=== PATIENT | male | born 1945 | race Caucasian/White ===

== ENCOUNTER 2018-08-11 05:46 | Inpatient (IN) | payer OTHER, MEDICARE ==
[2018-08-05 15:20] LABS: BASOPHILS # (AUTO) 0.1 X10'3 (0-0.2); BASOPHILS % (AUTO) 1.3 % (0-1); EOSINOPHILS # (AUTO) 0.2 X10'3 (0-0.9); EOSINOPHILS % (AUTO) 1.9 % (0-6); LYMPHOCYTES # (AUTO) 2.1 X10'3 (1.1-4.8); MEAN CORPUSCULAR HEMOGLOBIN 29.6 PG (27.0-31.0); MEAN CORPUSCULAR HGB CONC 32.7 % (33.0-36.5); MEAN CORPUSCULAR VOLUME 90.5 FL (78-98); MONOCYTES # (AUTO) 0.8 X10'3 (0-0.9); MONOCYTES % (AUTO) 9.5 % (2-12); NEUTROPHILS # (AUTO) 5.1 X10'3 (1.8-7.7); NEUTROPHILS % (AUTO) 62.3 % (42-75); PRE OP HEMATOCRIT 45.5 % (42.0-52.0); PRE OP HEMOGLOBIN 14.9 g/dL (14.0-17.9); PRE OP PLATELET COUNT 228 X10'3 (140-440); RED BLOOD COUNT 5.02 X10'6 (4.70-6.10); RED CELL DISTRIBUTION WIDTH 14.5 % (11.5-14.5)
[2018-08-05 15:36] LABS: ALBUMIN 3.8 G/DL (3.4-5.0); ALBUMIN/GLOBULIN RATIO 1.3 (1.1-1.5); ALKALINE PHOSPHATASE 73 IU/L (46-116); BLOOD UREA NITROGEN 26 MG/DL (7-18); BUN/CREATININE RATIO 23.2 (5.4-32.0); CALCIUM 9.1 MG/DL (8.5-10.1); CHLORIDE 107 MMOL/L (99-107); CREATININE 1.12 MG/DL (0.60-1.10); PRE OP ALT 22 U/L (30-65); PRE OP ANION GAP 11 (8-16); PRE OP AST 16 U/L (10-37); PRE OP BILIRUB, TOTAL 0.5 MG/DL (0.0-1.0); PRE OP GLUCOSE 148 MG/DL (70-104); PRE OP POTASSIUM 3.8 MMOL/L (3.4-5.1); PRE OP SODIUM 143 MMOL/L (135-145); TOTAL PROTEIN 6.8 G/DL (6.4-8.2); eGFR 64 ML/MIN
[2018-08-11] VITALS (18 sets, daily range): BP systolic 105–180; BP diastolic 58–96
[~2018-08-11] VITALS: Ht 177.8 cm; Wt 90.7 kg
[~2018-08-11 05:46] MED LIST: CELE-85 PO; LISI30TA4 PO; acetaminophen 325mg tablet PO ONE; cefazolin/dext.iso 2gm/100 ML IV ONE; famotidine 20mg tablet PO ONE; gabapentin 300mg capsule PO ONE; metoclopramide 5 mg/ml inj IV ONE; oxyCODONE SR 10mg (sust. release) tab PO ONE; ringers solution, lacted 1,000 ML IV SCH; tranexamic acid inj. 1,000 MG in normal saline 100ml IV soln 90 ML IV ONE; vancomycin inj 1,500 MG in normal saline 300ml IV soln IV ONE
[2018-08-11] MEDS ORDERED: LIDOcaine 1% (10mg/ml) 2ml vial ONE (06:26)
[2018-08-11] MEDS ORDERED: ceFAZolin 1000mg inj ONE (06:39)
[2018-08-11] MEDS ORDERED: Thrombin (Bovine) 5,000 unit vial TP ONE (06:39)
[2018-08-11] MEDS ORDERED: vancomycin 1,000mg inj ONE (06:39)
[2018-08-11] MEDS ORDERED: MIDAZolam 1mg/ml 10ml vial ONE (07:32)
[2018-08-11] MEDS ORDERED: fentaNYL/PF 50MCG/1 ML 2ML syringe ONE (07:32)
[2018-08-11] MEDS ORDERED: morphine /PF 1mg/ml 10ml inj. ONE (07:32)
[2018-08-11] MEDS ORDERED: cloNIDine hcl/PF 100mcg/ml inj ONE (07:47)
[2018-08-11] MEDS ORDERED: ROPIVACAINE IU ONE ×5 (08:35)
[2018-08-11] MEDS ORDERED: EPINEPHRINE IU ONE ×5 (08:35)
[2018-08-11] MEDS ORDERED: [UNRECOGNIZED DRUG - OTHER] IU ONE ×5 (08:35)
[2018-08-11] MEDS ORDERED: KETOROLAC TROMETH IU ONE ×5 (08:35)
[2018-08-11] MEDS ORDERED: calcium chloride 100 MG/1 ML inj IV ONE (08:38)
[2018-08-11] MEDS ORDERED: ringers solution, lacted 1,000 ML IV SCH (08:42)
[2018-08-11] MEDS ORDERED: morphine 4 MG/ML inj SYRINge IV PRN ×2 (08:45)
[2018-08-11] MEDS ORDERED: proCHLORperazine 10 MG/2 ml inj IV PRN (08:45)
[2018-08-11] MEDS ORDERED: ondansetron/PF 4mg/2ml inj IV PRN ×2 (08:45→10:15)
[2018-08-11] MEDS ORDERED: meperidine/PF 25mg/ml syringe IV PRN ×3 (08:45)
[2018-08-11] MEDS ORDERED: dexamethasone sod phosphate 4mg/ml inj. ONE (09:18)
[2018-08-11] MEDS ORDERED: ROPIVAcaine 0.5% (5mg/ml) 30ml vial ONE (09:18)
[2018-08-11] MEDS ORDERED: magnesium hydroxide 30ml (MOM) UD suspension PO PRN (10:15)
[2018-08-11] MEDS ORDERED: acetaminophen 325mg tablet PO PRN (10:15)
[2018-08-11] MEDS ORDERED: HYDROmorphone 1 mg/ml syringe IV PRN ×2 (10:15)
[2018-08-11] MEDS ORDERED: bisacodyl 10mg suppository rectal RC PRN (10:15)
[2018-08-11] MEDS ORDERED: diphenhydrAMINE 25mg capsule PO PRN ×2 (10:15)
[2018-08-11] MEDS: gabapentin 300mg capsule PO SCH ×2 (13:39→20:34)
[2018-08-11] MEDS: potassium cl 20mEq in 1/2 NS 1,000 ML IV SCH ×2 (13:39→23:40)
[2018-08-11] MEDS: acetaminophen 325mg tablet PO SCH ×2 (13:39→20:35)
[2018-08-11] MEDS ORDERED: tranexamic acid inj. 900 MG in normal saline 100ml IV soln 100 ML IV ONE (14:00)
[2018-08-11] MEDS: ceFAZolin 1GM/D5W- ADD-VANTAGE 50 ML IV SCH ×2 (16:18→23:41)
[2018-08-11] MEDS ORDERED: vancomycin/NS 1 GM ADD-VANTAGE 250 ML IV SCH (20:00)
[2018-08-11] MEDS: sennosides 8.6mg tablet PO SCH (20:34)
[2018-08-12 02:00] VITALS: BP 130/76
[2018-08-12] MEDS: acetaminophen 325mg tablet PO SCH ×4 (02:01→20:13)
[2018-08-12] MEDS: oxyCODONE IR 5mg (immed. release) tablet PO PRN ×4 (05:20→21:29)
[2018-08-12 06:00] VITALS: BP 129/63
[2018-08-12 06:34] LABS: BASOPHILS % (AUTO) 0.2 % (0-1); EOSINOPHILS # (AUTO) 0.2 X10'3 (0-0.9); EOSINOPHILS % (AUTO) 1.4 % (0-6); HEMATOCRIT 37.6 % (42.0-52.0); HEMOGLOBIN 12.3 g/dl (14.0-17.9); LYMPHOCYTES # (AUTO) 1.1 X10'3 (1.1-4.8); LYMPHOCYTES % (AUTO) 7.5 % (21-51); MEAN CORPUSCULAR HGB CONC 32.7 % (33.0-36.5); MEAN CORPUSCULAR VOLUME 91.9 FL (78-98); MEAN PLATELET VOLUME 8.9 FL (7.4-10.4); MONOCYTES # (AUTO) 1.5 X10'3 (0-0.9); MONOCYTES % (AUTO) 9.6 % (2-12); NEUTROPHILS # (AUTO) 12.4 X10'3 (1.8-7.7); NEUTROPHILS % (AUTO) 81.3 % (42-75); PLATELET COUNT 202 X10'3 (140-440); RED CELL DISTRIBUTION WIDTH 14.5 % (11.5-14.5); WHITE BLOOD COUNT 15.3 X10'3 (4.5-11.0)
[2018-08-12 06:41] LABS: ANION GAP 11 (8-16); CHLORIDE 104 MMOL/L (99-107); POTASSIUM 4.1 MMOL/L (3.5-5.1); SODIUM 138 MMOL/L (135-145); TOTAL CARBON DIOXIDE 23.4 MMOL/L (24-32)
[2018-08-12] MEDS: gabapentin 300mg capsule PO SCH ×3 (08:01→20:13)
[2018-08-12] MEDS: aspirin 325mg tablet PO SCH (08:01)
[2018-08-12] MEDS: lisinopril 10 MG tablet PO SCH (08:04)
[2018-08-12] MEDS: potassium cl 20mEq in 1/2 NS 1,000 ML IV SCH ×3 (08:04→18:15)
[2018-08-12 10:00] VITALS: BP 149/90
[2018-08-12 14:00] VITALS: BP 146/72
[2018-08-12 17:00] VITALS: BP 154/72
[2018-08-12] MEDS: celeCOXIB 100mg capsule PO SCH (20:13)
[2018-08-12] MEDS: sennosides 8.6mg tablet PO SCH (20:13)
[2018-08-12 22:00] VITALS: BP 155/79
[2018-08-13] MEDS: oxyCODONE IR 5mg (immed. release) tablet PO PRN ×3 (01:35→13:13)
[2018-08-13] MEDS: acetaminophen 325mg tablet PO SCH ×2 (01:35→07:19)
[2018-08-13 05:35] LABS: BASOPHILS # (AUTO) 0.1 X10'3 (0-0.2); BASOPHILS % (AUTO) 0.5 % (0-1); EOSINOPHILS # (AUTO) 0.1 X10'3 (0-0.9); EOSINOPHILS % (AUTO) 0.9 % (0-6); HEMATOCRIT 34.9 % (42.0-52.0); HEMOGLOBIN 11.6 g/dl (14.0-17.9); LYMPHOCYTES # (AUTO) 1.4 X10'3 (1.1-4.8); LYMPHOCYTES % (AUTO) 12.3 % (21-51); MEAN CORPUSCULAR HEMOGLOBIN 30.1 PG (27.0-31.0); MEAN CORPUSCULAR HGB CONC 33.3 % (33.0-36.5); MEAN CORPUSCULAR VOLUME 90.5 FL (78-98); MEAN PLATELET VOLUME 9.2 FL (7.4-10.4); MONOCYTES # (AUTO) 1.4 X10'3 (0-0.9); NEUTROPHILS # (AUTO) 8.1 X10'3 (1.8-7.7); NEUTROPHILS % (AUTO) 73.3 % (42-75); PLATELET COUNT 176 X10'3 (140-440); RED BLOOD COUNT 3.85 X10'6 (4.70-6.10); RED CELL DISTRIBUTION WIDTH 14.9 % (11.5-14.5); WHITE BLOOD COUNT 11.1 X10'3 (4.5-11.0)
[2018-08-13 06:00] VITALS: BP 163/82
[2018-08-13] MEDS: celeCOXIB 100mg capsule PO SCH (07:18)
[2018-08-13] MEDS: gabapentin 300mg capsule PO SCH ×2 (07:19→13:13)
[2018-08-13] MEDS: aspirin 325mg tablet PO SCH (07:19)
[2018-08-13 07:21] VITALS: BP_SYST 188
[2018-08-13] MEDS: lisinopril 10 MG tablet PO SCH (07:21)
[2018-08-13] MEDS ORDERED: acetaminophen 325mg tablet PO PRN (10:15)
== END 2018-08-13 13:15 | disposition home or self-care (01) | DRG 470 ==
LOC: PAS IN 05:46 → EDSTATUS 07:30 → ORTHO 4S 11:30
PROVIDERS: ADMIT Orthopaedic Surgery; ATTEND Orthopaedic Surgery
PROC: 3E0T3BZ Introduction of Anesthetic Agent into Peripheral Nerves and Plexi, Percutaneous Approach (ICD-10-PCS; 2018-08-11)
PROC: 8E0YXCZ Robotic Assisted Procedure of Lower Extremity (ICD-10-PCS; 2018-08-11)
PROC: 0SRD069 Replacement of Left Knee Joint with Oxidized Zirconium on Polyethylene Synthetic Substitute, Cemented, Open Approach (ICD-10-PCS; principal; 2018-08-11 07:22)
DX: M17.12 Unilateral primary osteoarthritis, left knee (principal); D62 Acute posthemorrhagic anemia; I10 Essential (primary) hypertension; N40.0 Benign prostatic hyperplasia without lower urinary tract symptoms
CPT/HCPCS: 36415; 80051; 80053; 85025; 87070; 97110; 97116; 97161; 97530; A6455; A7000; C1713; C1758; C1776; G0378; J0690; J0735; J1100; J2250; J2274; J2765; J2795; J3010; J3370; J3490; J7030; J7120

== ENCOUNTER 2019-02-14 12:56 | Emergency (ER) | payer OTHER, MEDICARE ==
[~2019-02-14] VITALS: Ht 177.8 cm; Wt 94.7 kg
[~2019-02-14 12:56] MED LIST changes: -acetaminophen 325mg tablet PO ONE; -cefazolin/dext.iso 2gm/100 ML IV ONE; -famotidine 20mg tablet PO ONE; -gabapentin 300mg capsule PO ONE; -metoclopramide 5 mg/ml inj IV ONE; -oxyCODONE SR 10mg (sust. release) tab PO ONE; -ringers solution, lacted 1,000 ML IV SCH; -tranexamic acid inj. 1,000 MG in normal saline 100ml IV soln 90 ML IV ONE; -vancomycin inj 1,500 MG in normal saline 300ml IV soln IV ONE
[2019-02-14] MEDS ORDERED: HYDROcodone/acetaminophen 10/325mg tab PO ONE (15:45)
[2019-02-14] MEDS ORDERED: HYDR-4353 PO (15:46)
[2019-02-14 16:18] VITALS: BP 173/103
== END 2019-02-14 16:09 | disposition home or self-care (01) ==
LOC: ER 12:57
DX: S52.572A Other intraarticular fracture of lower end of left radius, initial encounter for closed fracture (principal); I10 Essential (primary) hypertension; M19.90 Unspecified osteoarthritis, unspecified site; Z79.899 Other long term (current) drug therapy; W01.0XXA Fall on same level from slipping, tripping and stumbling without subsequent striking against object, initial encounter; Y93.89 Activity, other specified; Y92.89 Other specified places as the place of occurrence of the external cause; Y99.8 Other external cause status
CPT/HCPCS: 29125; 73110; 99283

== ENCOUNTER 2019-05-27 12:44 | Outpatient (CLI) | payer MEDICARE, OTHER ==
[~2019-05-27 12:44] MED LIST changes: -CELE-85 PO; +HYDR-3972 PO
== END 2019-05-27 23:59 | disposition home or self-care (01) ==
LOC: VAS 12:44
PROVIDERS: ATTEND Surgery
DX: R22.43 Localized swelling, mass and lump, lower limb, bilateral (principal); I10 Essential (primary) hypertension; Z87.891 Personal history of nicotine dependence
CPT/HCPCS: 93970

== ENCOUNTER 2019-09-07 05:25 | Inpatient (IN) | payer OTHER ==
[2019-09-07] VITALS (18 sets, daily range): BP systolic 124–182; BP diastolic 69–96
[~2019-09-07] VITALS: Ht 177.8 cm; Wt 96.0 kg
[~2019-09-07 05:25] MED LIST changes: +CELE200C PO; +FERR325T28 PO; -HYDR-3972 PO; +ringers solution, lacted 1,000 ML IV SCH
[2019-09-07] MEDS ORDERED: cefazolin/dext.iso 2gm/100ml 100 ML IV ONE (05:30)
[2019-09-07] MEDS ORDERED: tranexamic acid inj. 1,000 MG in normal saline 100 ML IV ONE (05:30)
[2019-09-07] MEDS ORDERED: vancomycin inj 1,500 MG in normal saline 300ml IV soln IV ONE (05:30)
[2019-09-07] MEDS ORDERED: famotidine 20mg tablet PO ONE (05:30)
[2019-09-07] MEDS ORDERED: LIDOcaine 1% (10mg/ml) 2ml vial ONE (06:01)
[2019-09-07] MEDS ORDERED: morphine 10mg/ml inj. ONE (06:42)
[2019-09-07] MEDS ORDERED: ceFAZolin 1000mg inj ONE (06:42)
[2019-09-07] MEDS ORDERED: vancomycin 1,000mg inj ONE (06:42)
[2019-09-07] MEDS ORDERED: ketorolac trometh. 30mg/ml inj. ONE (06:42)
[2019-09-07] MEDS ORDERED: epiNEPHrine 1 mg/ml inj ONE (06:42)
[2019-09-07] MEDS ORDERED: ROPIVAcaine 0.5% (5mg/ml) 30ml vial ONE ×2 (06:43→09:33)
[2019-09-07] MEDS ORDERED: mineral oil 10ml sterile, topical TP ONE (07:04)
[2019-09-07] MEDS ORDERED: fentaNYL/PF 50MCG/1 ML 2ML syringe ONE (07:19)
[2019-09-07] MEDS ORDERED: MIDAZolam 5mg/5ml vial ONE (07:19)
[2019-09-07] MEDS ORDERED: tetracaine 1% (10mg/ml) pres. free inj. ONE (07:21)
[2019-09-07 07:31] LABS: BASOPHILS # (AUTO) 0.1 X10'3 (0-0.2); EOSINOPHILS # (AUTO) 0.2 X10'3 (0-0.9); EOSINOPHILS % (AUTO) 2.1 % (0-6); HEMATOCRIT 42.1 % (42.0-52.0); HEMOGLOBIN 13.9 g/dl (14.0-17.9); LYMPHOCYTES # (AUTO) 1.6 X10'3 (1.1-4.8); MEAN CORPUSCULAR HEMOGLOBIN 29.1 PG (27.0-31.0); MEAN CORPUSCULAR HGB CONC 33.1 g/dL (33.0-36.5); MEAN PLATELET VOLUME 8.6 FL (7.4-10.4); MONOCYTES # (AUTO) 0.8 X10'3 (0-0.9); MONOCYTES % (AUTO) 11.1 % (2-12); NEUTROPHILS # (AUTO) 4.6 X10'3 (1.8-7.7); NEUTROPHILS % (AUTO) 63.8 % (42-75); PLATELET COUNT 212 X10'3 (140-440); RED BLOOD COUNT 4.78 X10'6 (4.70-6.10); RED CELL DISTRIBUTION WIDTH 16.1 % (11.5-14.5); WHITE BLOOD COUNT 7.1 X10'3 (4.5-11.0)
[2019-09-07] MEDS ORDERED: Thrombin (Bovine) 5,000 unit vial TP ONE (08:06)
[2019-09-07] MEDS ORDERED: calcium chloride 100 MG/1 ML inj IV ONE (08:07)
[2019-09-07] MEDS ORDERED: propofol inj 20 ML IV ONE ×2 (08:26→10:05)
[2019-09-07] MEDS ORDERED: LIDOcaine 1%/PF 5ML 10 MG/ML VIAL ONE (08:26)
[2019-09-07] MEDS ORDERED: diphenhydrAMINE 50 mg/ml inj ONE (08:26)
[2019-09-07] MEDS ORDERED: glycopyrrolate 0.2mg/ml inj ONE (08:26)
[2019-09-07] MEDS ORDERED: ringers solution, lacted 1,000 ML IV SCH (08:51)
[2019-09-07] MEDS ORDERED: ROPIVAcaine 0.2%/PF PUMP/bolus 550 ML ADDCANAL SCH ×2 (08:51)
[2019-09-07] MEDS ORDERED: ondansetron/PF 4mg/2ml inj IV PRN ×2 (08:55→10:20)
[2019-09-07] MEDS ORDERED: morphine 4 MG/ML inj SYRINge IV PRN (08:55)
[2019-09-07] MEDS ORDERED: ROPIVAcaine 0.2% (10 MG/5 ML) BOLUS INJECTION ADDCANAL PRN (08:55)
[2019-09-07] MEDS ORDERED: HYDROmorphone inj. 0.5 MG/0.5 ML DISP.SYRIN IV PRN ×2 (08:55→10:20)
[2019-09-07] MEDS ORDERED: acetaminophen 325mg tablet PO PRN (10:20)
[2019-09-07] MEDS ORDERED: magnesium hydroxide 30ml (MOM) UD suspension PO PRN (10:20)
[2019-09-07] MEDS ORDERED: bisacodyl 10mg suppository rectal RC PRN (10:20)
[2019-09-07] MEDS ORDERED: oxyCODONE IR 5mg (immed. release) tablet PO PRN (10:20)
[2019-09-07] MEDS ORDERED: diphenhydrAMINE 25mg capsule PO PRN ×2 (10:20)
--- NOTE | 2019-09-07 10:55 | NUR ---
Received from OR via BED , accompanied by Anesthesiologist DR NIETO and report given by Anesthesiolgist. PATIENT WAKING UP, DENIES PAIN, V/S WNL, NEUROVASCULAR CHECKS INTACT, 18G PIV LUE , SOPHIA DRESSING TO RIGHT KNEE CDI W/ COLD POWDER PACK AND W/ SCD ON. F/C DRAINING CLEAR YELLOW URINE. SENSATION T-11.
--- NOTE | 2019-09-07 11:12 | NUR ---
received report from lakia barnes in recovery
--- NOTE | 2019-09-07 11:45 | NUR ---
PATIENT A&OX4, DENIES PAIN, V/S WNL, NEUROVASCULAR CHECKS INTACT, 18G PIV LUE , SOPHIA DRESSING TO RIGHT KNEE CDI W/ COLD POWDER PACK AND W/ SCD ON. F/C DRAINING CLEAR YELLOW URINE. SENSATION T-11. PATIENT TAKEN TO WITH ALL BELONGINGS AND HOOKED UP TO MONITORS IN ROOM AND REPORT GIVEN TO [facility] [employer] WHO HAS TAKEN OVER PATIENT CARE.
[2019-09-07] MEDS ORDERED: ferrous sulfate 325mg tablet PO SCH (12:30)
[2019-09-07] MEDS: gabapentin 300mg capsule PO SCH ×2 (12:39→20:14)
[2019-09-07] MEDS: oxyCODONE IR 5mg (immed. release) tablet PO PRN ×3 (13:11→23:36)
[2019-09-07] MEDS ORDERED: tranexamic acid inj. 1,000 MG in normal saline 100ml IV soln 100 ML IV ONE (13:30)
[2019-09-07] MEDS: acetaminophen 325mg tablet PO SCH ×2 (13:52→20:14)
[2019-09-07] MEDS: HYDROmorphone 1 mg/ml syringe IV PRN ×2 (15:02→20:15)
[2019-09-07] MEDS: ceFAZolin 1GM/D5W- ADD-VANTAGE 50 ML IV SCH ×2 (16:25→23:35)
[2019-09-07] MEDS: potassium cl 20mEq in 1/2 NS 1,000 ML IV SCH (17:03)
--- NOTE | 2019-09-07 18:23 | NUR ---
gave report to lakia josé
[2019-09-07] MEDS ORDERED: vancomycin/NS 1 GM ADD-VANTAGE 250 ML IV SCH (20:00)
[2019-09-07] MEDS ORDERED: sennosides 8.6mg tablet PO SCH (21:00)
--- NOTE | 2019-09-07 23:00 | NUR ---
Patient in room [facility] 4024. I have received report from JAILENE Costello and had the opportunity to ask questions and assume patient care. Addendum: 09/07/19 at 2300 by Miriam Huff RN Amended: Links added.
[2019-09-08 02:00] VITALS: BP 180/83
[2019-09-08] MEDS: acetaminophen 325mg tablet PO SCH ×3 (02:00→15:02)
[2019-09-08] MEDS: potassium cl 20mEq in 1/2 NS 1,000 ML IV SCH ×4 (02:18→10:18)
[2019-09-08] MEDS: HYDROmorphone 1 mg/ml syringe IV PRN (04:49)
[2019-09-08 06:00] VITALS: BP 165/73
--- NOTE | 2019-09-08 06:00 | NUR ---
patient f/c taken out and tolerated well,
--- NOTE | 2019-09-08 06:46 | NUR ---
Problems reprioritized. Patient report given, questions answered & plan of care reviewed with Cathi/JAILENE Trejo's.
[2019-09-08 06:53] LABS: BASOPHILS # (AUTO) 0.1 X10'3 (0-0.2); BASOPHILS % (AUTO) 0.6 % (0-1); EOSINOPHILS % (AUTO) 0.2 % (0-6); HEMATOCRIT 38.6 % (42.0-52.0); HEMOGLOBIN 12.8 g/dl (14.0-17.9); LYMPHOCYTES # (AUTO) 1.5 X10'3 (1.1-4.8); LYMPHOCYTES % (AUTO) 12.4 % (21-51); MEAN CORPUSCULAR HGB CONC 33.2 g/dL (33.0-36.5); MEAN CORPUSCULAR VOLUME 87.3 FL (78-98); MEAN PLATELET VOLUME 9.2 FL (7.4-10.4); MONOCYTES # (AUTO) 1.6 X10'3 (0-0.9); MONOCYTES % (AUTO) 13.5 % (2-12); NEUTROPHILS # (AUTO) 8.8 X10'3 (1.8-7.7); NEUTROPHILS % (AUTO) 73.3 % (42-75); PLATELET COUNT 207 X10'3 (140-440); RED BLOOD COUNT 4.42 X10'6 (4.70-6.10); RED CELL DISTRIBUTION WIDTH 15.9 % (11.5-14.5); WHITE BLOOD COUNT 12.1 X10'3 (4.5-11.0)
--- NOTE | 2019-09-08 07:03 | NUR ---
Patient in room [facility]TH[facility] 4024A. I have received report from FREDERIC DENT and had the opportunity to ask questions and assume patient care.
[2019-09-08 07:05] LABS: ANION GAP 9 (8-16); CHLORIDE 101 MMOL/L (99-107); POTASSIUM 3.9 MMOL/L (3.5-5.1); SODIUM 135 MMOL/L (135-145); TOTAL CARBON DIOXIDE 24.7 MMOL/L (24-32)
[2019-09-08] MEDS ORDERED: lisinopril 10 MG tablet PO SCH (08:00)
[2019-09-08] MEDS ORDERED: non-formulary drug (Celecoxib (Celebrex) 1 CAP) PO SCH (08:00)
[2019-09-08] MEDS ORDERED: enoxaparin 40mg/0.4ml syringe SQ SCH (08:00)
[2019-09-08] MEDS ORDERED: lisinopril 20mg tablet PO SCH (08:00)
[2019-09-08] MEDS: gabapentin 300mg capsule PO SCH ×2 (08:35→15:02)
[2019-09-08 10:00] VITALS: BP 167/79
[2019-09-08] MEDS ORDERED: ASPI-1264 PO (12:25)
--- NOTE | 2019-09-08 13:25 | NUR ---
Joint replacement consult: Pt seen by JENNIFER for written/verbal high protein ed w/ RD contact information provided. Pt declines additional proteins at this time. Addendum: 09/08/19 at [address] Amended: Links added.
--- NOTE | 2019-09-08 16:54 | NUR ---
SOPHIA DRESSING CHANGED DUE TO SATURATION UPON DISCHARGE AND NEW ON Q PUMP REFILL AT DISCHARGE, PATIENT STABLE
[2019-09-08] MEDS ORDERED: celeCOXIB 100mg capsule PO SCH (20:00)
[2019-09-09] MEDS ORDERED: acetaminophen 325mg tablet PO PRN (10:20)
== END 2019-09-08 16:10 | disposition home health service (06) | DRG 470 ==
LOC: PAS IN 05:25 → EDSTATUS 07:30 → ORTHO 4S 11:55
PROVIDERS: ADMIT Orthopaedic Surgery; ATTEND Orthopaedic Surgery
PROC: 3E0T3BZ Introduction of Anesthetic Agent into Peripheral Nerves and Plexi, Percutaneous Approach (ICD-10-PCS; 2019-09-07)
PROC: 8E0YXCZ Robotic Assisted Procedure of Lower Extremity (ICD-10-PCS; 2019-09-07)
PROC: 0SRC069 Replacement of Right Knee Joint with Oxidized Zirconium on Polyethylene Synthetic Substitute, Cemented, Open Approach (ICD-10-PCS; principal; 2019-09-07 07:41)
DX: M17.11 Unilateral primary osteoarthritis, right knee (principal); D62 Acute posthemorrhagic anemia; N40.0 Benign prostatic hyperplasia without lower urinary tract symptoms; I25.10 Atherosclerotic heart disease of native coronary artery without angina pectoris; I10 Essential (primary) hypertension; Z85.46 Personal history of malignant neoplasm of prostate; Z79.899 Other long term (current) drug therapy
CPT/HCPCS: 36415; 80051; 82948; 85025; 87081; 93005; 97116; 97161; 97530; A4215; A6454; A7000; C1713; C1758; C1776; G0378; J0171; J0690; J1170; J1200; J1650; J1885; J2001; J2250; J2270; J2704; J2795; J3010; J3370; J3480; J3490; J7120